=== PATIENT | female | born 1995 | race Hispanic/Latino ===

== ENCOUNTER 2018-01-31 15:48 | Observation (INO) | payer MEDICAID ==
[~2018-01-31] VITALS: Ht 157.5 cm; Wt 91.2 kg
[2018-01-31 17:06] LABS: APPEARANCE,URINE CLEAR (CLEAR); BILIRUBIN,URINE Negative (NEGATIVE); COLOR,URINE Yellow (YELLOW); GLUCOSE, URINE (UA) Negative (NEGATIVE); KETONES,URINE Negative (NEGATIVE); LEUKOCYTE ESTERASE ,URINE Negative (NEGATIVE); NITRATE,URINE Negative (NEGATIVE); OCCULT BLOOD,URINE Negative (NEGATIVE); PH,URINE 6.5 (5.0-8.0); PROTEIN,URINE Negative (NEGATIVE); UROBILINOGEN,URINE 0.2 mg/dL (0.2-1.0)
== END 2018-01-31 18:05 | disposition home or self-care (01) ==
LOC: LDH 15:48
PROVIDERS: ADMIT Obstetrics & Gynecology; ATTEND Obstetrics & Gynecology
DX: O26.853 Spotting complicating pregnancy, third trimester (principal); O26.893 Other specified pregnancy related conditions, third trimester; R10.30 Lower abdominal pain, unspecified; Z3A.37 37 weeks gestation of pregnancy
CPT/HCPCS: 81003; G0378 ×3

== ENCOUNTER 2018-02-04 20:32 | Observation (INO) | payer MEDICAID ==
[~2018-02-04] VITALS: Ht 157.5 cm; Wt 93.0 kg
[2018-02-04 21:17] LABS: APPEARANCE,URINE Clear (CLEAR); BILIRUBIN,URINE Negative (NEGATIVE); COLOR,URINE Yellow (YELLOW); GLUCOSE, URINE (UA) Negative (NEGATIVE); KETONES,URINE Negative (NEGATIVE); LEUKOCYTE ESTERASE ,URINE Negative (NEGATIVE); NITRATE,URINE Negative (NEGATIVE); OCCULT BLOOD,URINE Negative (NEGATIVE); PROTEIN,URINE Negative (NEGATIVE); UROBILINOGEN,URINE 0.2 mg/dL (0.2-1.0)
== END 2018-02-04 22:15 | disposition home or self-care (01) ==
LOC: EDH 20:32 → LDH 20:33
PROVIDERS: ADMIT Obstetrics & Gynecology; ATTEND Obstetrics & Gynecology
DX: O42.92 Full-term premature rupture of membranes, unspecified as to length of time between rupture and onset of labor (principal); O75.82 Onset (spontaneous) of labor after 37 completed weeks of gestation but before 39 completed weeks gestation, with delivery by (planned) cesarean section; Z3A.38 38 weeks gestation of pregnancy
CPT/HCPCS: 81003; 99285; G0378 ×2

== ENCOUNTER 2018-02-06 15:27 | Inpatient (IN) | payer MEDICAID ==
[2018-02-06] MEDS ORDERED: LACTATED RINGERS 1000ML 1,000 ML IV PRN (16:16)
[2018-02-06 16:48] LABS: APPEARANCE,URINE Clear (CLEAR); BILIRUBIN,URINE Negative (NEGATIVE); COLOR,URINE Yellow (YELLOW); GLUCOSE, URINE (UA) TRACE mg/dL (NEGATIVE); KETONES,URINE Negative (NEGATIVE); LEUKOCYTE ESTERASE ,URINE Trace (NEGATIVE); NITRATE,URINE Negative (NEGATIVE); OCCULT BLOOD,URINE Negative (NEGATIVE); PH,URINE 7.5 (5.0-8.0); PROTEIN,URINE Negative (NEGATIVE)
[2018-02-06 16:52] LABS: HEMATOCRIT 35.6 % (36-48); MEAN CORPUSCULAR HEMOGLOBIN 30.6 pg (27.0-33.0); MEAN CORPUSCULAR VOLUME 89.8 fL (79-99); PLATELET COUNT (AUTO) 225 K/uL (130-400); RED BLOOD CELL COUNT(AUTO) 3.97 MIL/uL (4.00-5.50); WHITE BLOOD COUNT (AUTO) 10.3 K/uL (4.8-10.8)
[2018-02-06 16:56] LABS: AMORPHOUS SEDIMENT,UR Rare /LPF (None Seen); BACTERIA,URINE Rare /HPF (None Seen); RBC,URINE 0-1 /HPF (0-1); SQUAMOUS EPITHELIAL CELL,UR Few /HPF (0-2); WBC,URINE 0-1 /HPF (0-1)
[2018-02-07] VITALS (18 sets, daily range): BP systolic 65–123; BP diastolic 31–65
[2018-02-07] MEDS ORDERED: OXYTOCIN 10 USP UNITS/ML 20 UNIT in LACTATED RINGERS 1000ML 1,000 ML IV SCH (03:00)
[2018-02-07] MEDS ORDERED: LACTATED RINGERS 1000ML 1,000 ML IV ONE (03:05)
[2018-02-07] MEDS ORDERED: OXYTOCIN 10 USP UNITS/ML ONE ×2 (03:05→15:51)
[2018-02-07] MEDS ORDERED: MEPERIDINE-PF 50 MG/ML SYG IVP SCH ×2 (08:30→11:15)
[2018-02-07] MEDS ORDERED: PROMETHAZINE HCL 25 MG/ML 1ML AMPULE IM SCH ×2 (08:30→11:15)
[2018-02-07] MEDS ORDERED: NALOXONE HCL 0.4 MG/1 ML ML IV PRN (12:30)
[2018-02-07] MEDS ORDERED: LACTATED RINGERS 500 ML 500 ML IV PRN (12:30)
[2018-02-07] MEDS ORDERED: EPHEDRINE SULFATE 50 MG/ML AMPULE IVP PRN ×2 (12:30→18:00)
[2018-02-07] MEDS ORDERED: CEFAZOLIN SODIUM 1 GM VIAL ONE (13:45)
[2018-02-07] MEDS ORDERED: SUCCINYLCHOLINE 200MG/10ML SYR ONE (13:51)
[2018-02-07] MEDS ORDERED: LIDOCAINE PF 2% 5ML ABBOJECT ONE (13:51)
[2018-02-07] MEDS ORDERED: DEXAMETHASONE SOD PHOSPHATE 10MG/ML 1ML VIAL ONE (13:51)
[2018-02-07] MEDS ORDERED: ROCURONIUM 10MG/1ML SYR 10 MG/ML ML ONE (13:51)
[2018-02-07] MEDS ORDERED: NEOSTIGMINE 5MG/5ML SYR IV ONE ×2 (13:51→14:13)
[2018-02-07] MEDS ORDERED: GLYCOPYRROLATE 0.2 MG/ML 5 ML VIAL ONE ×2 (13:51→14:14)
[2018-02-07] MEDS ORDERED: PROPOFOL 10 MG/ML 20ML VIAL IV ONE (13:52)
[2018-02-07] MEDS ORDERED: MIDAZOLAM HCL 1 MG/ML 2ML VIAL ONE (13:52)
[2018-02-07] MEDS ORDERED: FENTANYL CITRATE PF 50 MCG/1 ML 2ML VIAL ONE (13:53)
[2018-02-07] MEDS ORDERED: IBUPROFEN 600 MG TABLET PO PRN (14:15)
[2018-02-07] MEDS ORDERED: ACETAMINOPHEN-CODEINE 300/30MG TAB PO PRN (14:15)
[2018-02-07] MEDS ORDERED: HYDROCODONE/ACETAMINOPHEN 5/325 MG TAB PO PRN ×4 (14:15→18:00)
[2018-02-07] MEDS ORDERED: ACETAMINOPHEN EXTRA STRENGTH 500 MG TABLET PO PRN (14:15)
[2018-02-07] MEDS ORDERED: IBUPROFEN 800 MG TAB PO SCH (14:15)
[2018-02-07] MEDS ORDERED: LANOLIN 30GM OINTMENT TP PRN (14:15)
[2018-02-07] MEDS ORDERED: MEPERIDINE-PF 75 MG/ML SYG IM PRN (14:15)
[2018-02-07] MEDS ORDERED: SODIUM CHLORIDE 0.9% 10 ML VIAL IVP PRN ×2 (14:15)
[2018-02-07] MEDS ORDERED: PROMETHAZINE HCL 25 MG/ML 1ML AMPULE IM PRN ×2 (14:15→18:00)
[2018-02-07] MEDS ORDERED: BISACODYL 10 MG SUPP.RECT RC PRN (14:15)
[2018-02-07] MEDS ORDERED: OXYTOCIN-LR 20 UNITS/1000 ML 1,000 ML IV PRN (14:15)
[2018-02-07] MEDS ORDERED: EPHEDRINE SULFATE 50 MG/ML AMPULE ONE (14:43)
[2018-02-07] MEDS ORDERED: ONDANSETRON HCL MDV 20ML 2 MG/ML VIAL IVP PRN ×2 (18:00)
[2018-02-07] MEDS ORDERED: ROPIVACAINE 0.2%200ML EPIDURAL 200 ML EP SCH (18:00)
[2018-02-07] MEDS ORDERED: MORPHINE SULFATE 2 MG/ML 1ML SYG IVP PRN (18:00)
[2018-02-07] MEDS ORDERED: DiphenhydrAMINE HCL 50 MG/ML VIAL IVP PRN (18:00)
[2018-02-07] MEDS ORDERED: METOCLOPRAMIDE 10 MG/2 ML VIAL IVP PRN (18:00)
[2018-02-07] MEDS ORDERED: ONDANSETRON HCL 4 MG/2 ML VIAL IVP PRN ×2 (18:00)
[2018-02-07] MEDS ORDERED: ONDANSETRON HCL 4 MG/2 ML 8 MG in SODIUM CHLORIDE 0.9% 50 ML IVP NR (18:00)
[2018-02-07] MEDS ORDERED: NALOXONE HCL 0.4 MG/1 ML ML IVP PRN ×2 (18:00)
[2018-02-07] MEDS: DOCUSATE SODIUM 100 MG CAP PO SCH (20:54)
[2018-02-07] MEDS: CALDOLOR 800MG+NS 250ML 250 ML IV SCH (22:18)
[2018-02-07] MEDS: DEXTROSE 5 %-0.45 % NACL 1,000 ML IV PRN (22:24)
[2018-02-08] VITALS (7 sets, daily range): BP systolic 91–118; BP diastolic 56–85
[2018-02-08] MEDS: CALDOLOR 800MG+NS 250ML 250 ML IV SCH (06:00)
[2018-02-08] MEDS: DEXTROSE 5 %-0.45 % NACL 1,000 ML IV PRN (06:05)
[2018-02-08 07:00] LABS: HEMATOCRIT 27.6 % (36-48); MEAN CORPUSCULAR HEMOGLOBIN 30.2 pg (27.0-33.0); MEAN CORPUSCULAR HGB CONC 33.5 g/dL (32.0-36.0); MEAN CORPUSCULAR VOLUME 90.1 fL (79-99); PLATELET COUNT (AUTO) 182 K/uL (130-400); RED BLOOD CELL COUNT(AUTO) 3.06 MIL/uL (4.00-5.50); WHITE BLOOD COUNT (AUTO) 11.2 K/uL (4.8-10.8)
[2018-02-08] MEDS: SIMETHICONE 80 MG TAB.CHEW PO PRN ×2 (09:04→20:58)
[2018-02-08] MEDS: DOCUSATE SODIUM 100 MG CAP PO SCH ×2 (09:05→20:58)
[2018-02-08 10:22] LABS: HEPATITIS Bs ANTIGEN SCREEN P Negative (Negative)
[2018-02-08] MEDS: DIPH,PERTUSS(ACELL),TET VAC/PF 0.5 ML VIAL IM SCH (15:44)
[2018-02-08] MEDS: IBUPROFEN 800 MG TAB PO SCH (22:04)
[2018-02-09 04:04] VITALS: BP 108/64
[2018-02-09] MEDS: IBUPROFEN 800 MG TAB PO SCH ×3 (05:49→14:52)
[2018-02-09] MEDS: DIPH,PERTUSS(ACELL),TET VAC/PF 0.5 ML VIAL IM SCH (06:49)
[2018-02-09 07:18] VITALS: BP 99/47
[2018-02-09] MEDS: SIMETHICONE 80 MG TAB.CHEW PO PRN (08:54)
[2018-02-09] MEDS: DOCUSATE SODIUM 100 MG CAP PO SCH (08:54)
[2018-02-09 11:35] VITALS: BP 105/64
[2018-02-09] MEDS ORDERED: FERS325 PO (11:50)
[2018-02-09] MEDS ORDERED: ACET1TAB12 PO (11:50)
== END 2018-02-09 15:05 | disposition home or self-care (01) | DRG 540 ==
LOC: LDH 15:27 → OBSVTOIN 15:27 → WSH 02-07 15:45
PROVIDERS: ADMIT Obstetrics & Gynecology; ATTEND Obstetrics & Gynecology
PROC: 10D00Z1 Extraction of Products of Conception, Low, Open Approach (ICD-10-PCS; principal; 2018-02-07 13:57)
PROC: 3E0234Z Introduction of Serum, Toxoid and Vaccine into Muscle, Percutaneous Approach (ICD-10-PCS; 2018-02-09)
DX: O69.81X0 Labor and delivery complicated by cord around neck, without compression, not applicable or unspecified (principal); O76 Abnormality in fetal heart rate and rhythm complicating labor and delivery; Z37.0 Single live birth; Z3A.38 38 weeks gestation of pregnancy; Z23 Encounter for immunization
CPT/HCPCS: 36415; 59510; 76805; 81001; 81003; 85027; 86592; 86850; 86900; 86901; 87340; 90715; A4314; A4344; A4450; A4606; G0378; J0330; J0690; J1100; J1741; J2001; J2175; J2250; J2550; J2590; J2704; J2710; J3010; J3490; J7120

== ENCOUNTER 2018-02-10 11:45 | Emergency (ER) | payer MEDICAID ==
[~2018-02-10 11:45] MED LIST: ACET1TAB12 PO; FERS325 PO
[2018-02-10] MEDS ORDERED: HYDROCODONE/ACETAMINOPHEN 10/325 MG TAB ONE (11:59)
== END 2018-02-10 15:21 | disposition home or self-care (01) ==
LOC: EDH 11:45
DX: O90.89 Other complications of the puerperium, not elsewhere classified (principal); S96.912A Strain of unspecified muscle and tendon at ankle and foot level, left foot, initial encounter; M79.89 Other specified soft tissue disorders; M79.605 Pain in left leg; J45.909 Unspecified asthma, uncomplicated; Z98.890 Other specified postprocedural states; X58.XXXA Exposure to other specified factors, initial encounter; Y93.89 Activity, other specified; Y92.098 Other place in other non-institutional residence as the place of occurrence of the external cause; Y99.8 Other external cause status
CPT/HCPCS: 73610; 93971

== ENCOUNTER → 2020-12-01 | Outpatient (CLI) | payer MEDICAID | END | disposition home or self-care (01) | LOC: CANPREIN → EDSTATUS 10:00 → DAH 10:00 | PROVIDERS: ATTEND Obstetrics & Gynecology | DX: Z01.818 Encounter for other preprocedural examination (principal); Z20.822 Contact with and (suspected) exposure to COVID-19 | CPT/HCPCS: U0003 ==

== ENCOUNTER 2020-12-04 13:53 | Inpatient (IN) | payer MEDICAID ==
[~2020-12-04] VITALS: Ht 157.5 cm; Wt 101.2 kg
[2020-12-04 14:36] VITALS: BP 108/58
[2020-12-04] MEDS ORDERED: CEFAZOLIN SODIUM 1 GM VIAL IVP PRN ×2 (15:00→16:00)
[2020-12-04] MEDS ORDERED: LACTATED RINGERS 1000ML 1,000 ML IV SCH (15:00)
[2020-12-04 15:25] LABS: HEMATOCRIT 32.6 % (36-48); MEAN CORPUSCULAR HEMOGLOBIN 28.5 pg (27.0-33.0); MEAN CORPUSCULAR HGB CONC 32.2 g/dL (32.0-36.0); MEAN CORPUSCULAR VOLUME 88.6 fL (79-99); RED BLOOD CELL COUNT(AUTO) 3.68 MIL/uL (4.00-5.50); RED CELL DISTRIBUTION WIDTH 14.7 % (11.0-15.5); WHITE BLOOD COUNT (AUTO) 8.9 K/uL (4.8-10.8)
[2020-12-04] MEDS ORDERED: OXYTOCIN-LR 20 UNITS/1000 ML 1,000 ML IV SCH (16:00)
[2020-12-04] MEDS ORDERED: MORPHINE PF 100MG/10ML AMP IV ONE (16:00)
[2020-12-04] MEDS ORDERED: ONDANSETRON 4MG INJ ONE (16:01)
[2020-12-04] MEDS ORDERED: EPINEPHRINE PF 1MG AMP ONE (16:01)
[2020-12-04] MEDS ORDERED: OXYTOCIN-LR 20 UNITS/1000 ML 2,000 ML IV ONE (16:21)
[2020-12-04] MEDS ORDERED: OXYTOCIN 10 UNIT/1ML 10ML VIAL ONE (17:01)
[2020-12-04] MEDS ORDERED: EPHEDRINE SULFATE 50 MG/ML AMPULE ONE (18:21)
[2020-12-04] MEDS ORDERED: DiphenhydrAMINE HCL 50 MG/ML VIAL ONE (21:12)
[2020-12-04] MEDS ORDERED: PROMETHAZINE HCL 25 MG/ML 1ML AMPULE IM PRN ×2 (21:15→22:30)
[2020-12-04] MEDS ORDERED: NALOXONE HCL 0.4 MG/1 ML ML IVP PRN (21:15)
[2020-12-04] MEDS ORDERED: DiphenhydrAMINE HCL 50 MG/ML VIAL IV PRN (21:15)
[2020-12-04] MEDS ORDERED: LORATADINE/PSEUDOEPHED 5/120 MG 1 EACH TAB.SR.12H PO PRN (21:30)
[2020-12-04] MEDS ORDERED: LORATADINE 10 MG TABLET PO PRN (21:30)
[2020-12-04] MEDS ORDERED: MEPERIDINE-PF 75 MG/ML SYG IM PRN (22:30)
[2020-12-04] MEDS ORDERED: 0.9%NACL 10ML VIAL IVP PRN (23:15)
[2020-12-04] MEDS ORDERED: MEPERIDINE-PF 75 MG/ML SYG ONE (23:15)
[2020-12-04] MEDS ORDERED: OXYTOCIN-LR 20 UNITS/1000 ML 1,000 ML IV PRN (23:15)
[2020-12-04 23:45] VITALS: BP 103/50
[2020-12-05] MEDS: DEXTROSE 5 %-0.45 % NACL 1,000 ML IV PRN ×2 (01:15→09:09)
[2020-12-05 04:30] VITALS: BP 98/55
[2020-12-05 07:09] VITALS: BP 99/58
[2020-12-05 07:15] LABS: HEMATOCRIT 29.5 % (36-48); MEAN CORPUSCULAR HEMOGLOBIN 28.7 pg (27.0-33.0); MEAN CORPUSCULAR HGB CONC 32.5 g/dL (32.0-36.0); MEAN CORPUSCULAR VOLUME 88.1 fL (79-99); RED BLOOD CELL COUNT(AUTO) 3.35 MIL/uL (4.00-5.50); RED CELL DISTRIBUTION WIDTH 14.8 % (11.0-15.5); WHITE BLOOD COUNT (AUTO) 9.6 K/uL (4.8-10.8)
[2020-12-05] MEDS ORDERED: HYDROCODONE/ACETAMINOPHEN 5/325 MG TAB PO PRN (08:15)
[2020-12-05] MEDS ORDERED: LANOLIN 30GM OINTMENT TP PRN (08:15)
[2020-12-05] MEDS ORDERED: FLU VACC QS2020-21(6MOS UP)/PF 60 MCG/0.5 ML ML IM ONE (08:15)
[2020-12-05] MEDS ORDERED: ACETAMINOPHEN 500 MG TABLET PO PRN (08:15)
[2020-12-05] MEDS ORDERED: DIPH,PERTUSS(ACELL),TET VAC/PF 0.5 ML VIAL IM SCH (08:15)
[2020-12-05] MEDS ORDERED: ACETAMINOPHEN WITH CODEINE 1 TAB TAB PO PRN (08:15)
[2020-12-05] MEDS ORDERED: BISACODYL 10 MG SUPP.RECT RC PRN (08:15)
[2020-12-05] MEDS ORDERED: FLU VACC QS2020-21(6MOS UP)/PF 60 MCG/0.5 ML ML IM SCH (08:30)
[2020-12-05] MEDS: SIMETHICONE 80 MG TAB.CHEW PO PRN ×2 (08:53→13:52)
[2020-12-05] MEDS: IBUPROFEN 600 MG TABLET PO PRN ×2 (08:55→16:44)
[2020-12-05] MEDS ORDERED: DOCUSATE SODIUM 100 MG CAP PO SCH (09:00)
[2020-12-05 11:25] VITALS: BP 101/44
[2020-12-05 16:32] VITALS: BP 107/50
[2020-12-08 05:11] LABS: HEPATITIS Bs ANTIGEN SCREEN P Negative (Negative)
== END 2020-12-05 18:30 | disposition home or self-care (01) | DRG 540 ==
LOC: EDH 13:53 → OBSVTOIN 13:54 → LDH 13:54 → WSH 12-05 06:30
PROVIDERS: ADMIT Obstetrics & Gynecology; ATTEND Obstetrics & Gynecology
PROC: 3E0234Z Introduction of Serum, Toxoid and Vaccine into Muscle, Percutaneous Approach (ICD-10-PCS; 2020-12-04)
PROC: 3E02340 Introduction of Influenza Vaccine into Muscle, Percutaneous Approach (ICD-10-PCS; 2020-12-04)
PROC: 10D00Z1 Extraction of Products of Conception, Low, Open Approach (ICD-10-PCS; principal; 2020-12-04 17:00)
DX: O34.211 Maternal care for low transverse scar from previous cesarean delivery (principal); O99.214 Obesity complicating childbirth; E66.9 Obesity, unspecified; Z37.0 Single live birth; Z23 Encounter for immunization; Z3A.38 38 weeks gestation of pregnancy
CPT/HCPCS: 36415; 59510; 85027; 86592; 86850; 86900; 86901; 87340; 90715; A4344; G0378; J0171; J0690; J1200; J2175; J2274; J2405; J2550; J2590; J3490; J7120; Q2035; U0003